=== PATIENT | female | born 1960 | race Caucasian/White ===

== ENCOUNTER 2017-12-16 08:24 | Day surgery (SDC) | payer BC ==
[2017-12-16] MEDS ORDERED: Lactated Ringers 1,000 ML IV SCH (08:30)
[2017-12-16] MEDS ORDERED: Sodium Chloride 0.9% 10 ML Syringe FLUSH PRN (08:30)
[2017-12-16] MEDS ORDERED: Midazolam 1 MG/ML 2 ML SDV IV ONE (10:15)
[2017-12-16] MEDS ORDERED: Propofol 200 MG/20 ML SDV IV ONE (10:15)
[2017-12-16] MEDS ORDERED: Simethicone Drops 40 MG/0.6 ML 30 ML Bottle PO ONE (10:41)
--- NOTE | 2017-12-16 11:04 | PCM.OPNOTE ---
- General Post-Op/Procedure Note Date of Surgery/Procedure: 12/16/17 Operative Procedure(s): egd with bx. c scope with bx Findings: gastritis fundic gland hyperplasia ascending colon polyp sigmoid diverticulosis Pre Op Diagnosis: abd bloating. need for screening c scope Post-Op Diagnosis: gastritis. fundic gland hyperplasia. ascending colon polyp. sigmoid diverticulosis Anesthesia Technique: MAC (s) Primary Surgeon: Alberto Dahl Anesthesia Provider: Marko Clark Pathology: gastritis fundic gland hyperplasia ascending colon polyp Complications: None Condition: Good Free Text/Narrative:: see dictation [id number]
--- NOTE | 2017-12-16 13:06 | OR ---
DATE OF OPERATION: 12/16/2017 SURGEON: Alberto Dahl MD PROCEDURES PERFORMED: EGD with cold forceps biopsy and colonoscopy with cold forceps biopsy. PREOPERATIVE DIAGNOSES: History of constipation, abdominal pain, and bloating. POSTOPERATIVE DIAGNOSES: Gastritis with fundic gland hyperplasia, ascending colon polyp. INDICATIONS FOR PROCEDURE: This is a 57-year-old white female who presents with the above-mentioned complaints, was offered and accepted an upper and lower endoscopy. DESCRIPTION OF PROCEDURE: After an excellent IV sedation was administered, bite block was inserted. The flexible endoscope was passed without difficulty down the patient's esophagus and into the stomach. The stomach was insufflated. Scope passed through the pylorus, to the second portion of the duodenum and slowly withdrawn. The following findings were noted. Duodenum was unremarkable. Stomach did demonstrate some diffuse gastritis as well as some fundic gland hyperplasia. Biopsies were taken of the inflamed mucosa as well as the fundic gland hyperplasia. The esophagus was unremarkable. Stomach was deflated and our attention was then turned to the colon. Digital rectal exam was performed. No marked abnormality was noted. Flexible colonoscope was inserted and advanced to the cecum without difficulty. The following findings were noted. Ascending colon, unremarkable, except for a small polypoid lesion, biopsied with cold biopsy forceps and sent for permanent. Transverse colon was unremarkable. Descending colon was unremarkable. Sigmoid demonstrated single diverticulum. Rectum and anus were unremarkable. Colon was deflated as the scope was removed. The patient tolerated the procedure well and was taken to the recovery room in a good condition. /[id number] /DESIREEL
== END 2017-12-16 12:00 | disposition home or self-care (01) ==
LOC: FB.SDS 08:24
PROVIDERS: ATTEND Surgery
DX: K29.30 Chronic superficial gastritis without bleeding (principal); K31.7 Polyp of stomach and duodenum; D12.2 Benign neoplasm of ascending colon; K57.30 Diverticulosis of large intestine without perforation or abscess without bleeding; K59.00 Constipation, unspecified; K21.9 Gastro-esophageal reflux disease without esophagitis; Z87.891 Personal history of nicotine dependence; Z79.899 Other long term (current) drug therapy
CPT/HCPCS: 43239; 45380; 88305; 88342; A9270; J2250; J2704; J7120